=== PATIENT | female | born 1950 | race Caucasian/White ===

== ENCOUNTER 2018-10-04 13:38 | Outpatient (CLI) | payer MEDICARE ==
[2018-10-04 18:44] VITALS: BP 153/90
== END 2018-10-04 13:40 ==
LOC: RT 13:38
PROVIDERS: ATTEND Family Medicine
DX: R00.0 Tachycardia, unspecified (principal)

== ENCOUNTER 2018-10-04 14:06 | Emergency (ER) | payer MEDICARE ==
[2018-10-04 14:15] LABS: BASOPHILS % 0.6 (0.0-1.5); EOSINOPHILS % 1.4 % (0.0-6.8); MEAN CORPUSCULAR HEMOGLOBIN 29.5 pg (28.0-34.0); MONOCYTES % 5.6 % (0.0-11.0); NEUTROPHILS # 10.6 # k/uL (1.4-7.7)
[2018-10-04 14:29] LABS: eGFR (Non-African) > 60
[2018-10-04] MEDS ORDERED: DILTIAZEM HCL 25 MG/5 ML VIAL IVP ONE ×2 (14:42→16:08)
--- NOTE | 2018-10-04 15:38 | ED Physician Documentation ---
General Adult - HISTORIAN Historian: patient, other (Dr Delgado) - HPI Stated Complaint: Afib with RVR Chief Complaint: General Adult Further Comments: yes (68 year old female patient brought over from Dr Delgado's office with atrial fib. EKG in office shows Afib with rate of 141. Patient denies any chest pain at presents, denies any SOB, denies any N/V. Dr Delgado reports patient has had a 10 pound unexplained weight loss since . Patient is very biligerant and anxious with assessments and treatments.) - ROS CONST: other (fatigue and "not feeling well") EYES/ENT: none CVS/RESP: none GI/: other (weight loss, problems eating since before ). denies: vomiting, nausea, diarrhea MS/SKIN/LYMPH: none - PAST HX Past History: hypertension, other (depression and anxiety) Allergies/Adverse Reactions: Allergies Allergy/AdvReac Type Severity Reaction Status Date / Time No Known Drug Allergies Allergy Verified 10/04/18 15:02 - SOCIAL HX Smoking History: non-smoker - FAMILY HX Family History: No - VITAL SIGNS Vital Signs: Vital Signs Temp Pulse Resp BP Pulse Ox 97 F L 145 H 18 203/145 97 10/04/18 14:09 10/04/18 14:09 10/04/18 14:10/04/18 14:10/04/18 14:39 - REVIEWED ASSESSMENTS Nursing Assessment Reviewed: Yes Vitals Reviewed: Yes Progress - Progress Progress: Multiple attempts at redirection, explaining all treatments and procedures multiple times; patient extremely nervous, belligerent with staff. Will progress with CT to rule out CVA. Initially refused CT - multiple explanations with patient and . Call to Dr Delgado - updated on patient's status, agrees with treatment plan. Explained patient often does not agree with testing and procedures. Call to Dr Delgado; case discussed - recommended transfer for cardiology consult. Updated patient; extensive education and discussion - patient agreed to transfer; prefers [facility]. Dr Tripp, cardiology python web developer, in an emergency procedure. [id number] Tripp. Patient accepted for transfer. Cardizem drip increased to 7 mg/hr - heart rate 140s; Atrial fib. - EKG/XRAY/CT EKG: rhythm (from clinic - Afib, rate 141) - Additional EKG/XRAY/Consults EKG #2: rhythm (#2 - In ER, rate 125, Afib) ED Results Lab/Radiology - Lab Results Lab Results: Lab Results 10/04/18 10/04/18 10/04/18 14:09 14:09 14:00 WBC 13.20 K/ul H K/ul (4.00-12.00) RBC 4.38 M/ul M/ul (3.90-5.20) Hgb 12.9 g/dL g/dL (12.0-16.0) Hct 39.4 % % (34.5-46.5) MCV 90.0 fl fl (80.0-100.0) MCH 29.5 pg pg (28.0-34.0) MCHC 32.8 g/dL g/dL (30.0-36.0) RDW 16.8 % H % (11.3-14.3) Plt Count 231 K/mm3 K/mm3 (130-400) Neut % (Auto) 79.8 % H % (39.0-79.0) Lymph % (Auto) 12.6 % L % (16.0-50.0) [place] % (Auto) 5.6 % % (0.0-11.0) Eos % (Auto) 1.4 % % (0.0-6.8) Baso % (Auto) 0.6 (0.0-1.5) Neut # (Auto) 10.6 # k/uL H # k/uL (1.4-7.7) Lymph # (Auto) 1.7 # k/uL # k/uL (0.6-4.0) [place] # (Auto) 0.7 # k/uL # k/uL (0.0-0.9) Eos # (Auto) 0.2 # k/uL # k/uL (0.0-0.6) Baso # (Auto) 0.1 # k/uL # k/uL (0.0-0.5) Sodium 145 mmol/L mmol/L (136-145) Potassium 3.6 mmol/L mmol/L (3.5-5.1) Chloride 101 mmol/L mmol/L (98-107) Carbon Dioxide 28 mmol/L mmol/L (22-30) BUN 16 mg/dL mg/dL (7-17) Creatinine 1.07 mg/dL H mg/dL (0.52-1.04) Est GFR ( Amer) > 60 (60 - ) Est GFR (Non-Af Amer) > 60 (60 - ) Glucose 115 mg/dL H mg/dL (74-106) Calcium 9.9 mg/dL mg/dL (8.4-10.2) Total Bilirubin 1.3 mg/dL mg/dL (0.2-1.3) AST 30 U/L U/L (15-46) ALT 24 U/L U/L (13-69) Alkaline Phosphatase 62 U/L U/L (38-126) CK-MB (CK-2) 1.5 ng/mL ng/mL (0.0-5.6) Troponin I < 0.03 ng/mL L ng/mL (0.03-0.06) Total Protein 7.9 g/dL g/dL (6.3-8.2) Albumin 5.1 g/dL H g/dL (3.5-5.0) Lipase 83 U/L U/L (23-300) - Radiology Radiology Impressions: CT abdomen and pelvis with contrast History: Fatigue and weight loss Technique: Helically acquired images were obtained from the hemidiaphragms to the pelvic floor following IV contrast. Findings: There is mild, smooth pleural thickening posteromedially at the right lung base. Otherwise, visualized lung bases are clear. The spleen is mildly enlarged at 14 cm but no splenic lesions are noted. The liver, gallbladder, adrenal glands, pancreas and kidneys are unremarkable. There is heavy aortoiliac atherosclerosis without aneurysm. The kidneys are unremarkable. Small and large bowel loops are normal in caliber. The uterus, adnexa and decompressed bladder are unremarkable. There is no free fluid in the abdomen or pelvis. There is multilevel facet arthropathy. There is mild vacuum disc phenomenon at L1/2 and L2/3. Impression: Mild splenomegaly. Heavy aortoiliac atherosclerosis. Mild, smooth pleural thickening posteromedially at the right lung base. Degenerative findings of the lumbar spine as described. Electronically signed on Oct 04, 2018 3:52:26 PM CALENDAR CONTROL CLERK BLOOD BANK by: Jazmine Duran Head CT without contrast History: Fatigue. Unexplained weight loss. Altered mental status Technique: Axial images were obtained from the skull base to the vertex without IV contrast. Findings: There is age-related cortical volume loss. Brain parenchyma demonstrates normal attenuation. There is no positive mass effect or intra/extra-axial hemorrhage. The visualized paranasal sinuses and mastoid air cells are clear. Findings of mild hyperostosis frontalis interna are present. Impression: Age-related cortical volume loss. Otherwise, no intracranial abnormality. Electronically signed on Oct 04, 2018 3:44:22 PM CALENDAR CONTROL CLERK BLOOD BANK by: Jazmine Duran Portable chest History: Cough. Hypoxia. Portable chest dated October 04, 2018 is without prior radiographs comparison. The heart is mildly enlarged. There is mild aortic atherosclerosis. Pulmonary vascularity is normal. Lungs are clear. Impression: Mild cardiomegaly. No active disease. Electronically signed on Oct 04, 2018 3:45:16 PM CALENDAR CONTROL CLERK BLOOD BANK by: Jazmine Duran - Orders Orders: ED Orders Category Date Time Status Continuous EKG monitoring Q30M Care 10/04/18 14:09 Active Continuous Pulse Oximetry Q30M Care 10/04/18 14:[address] IV Lock 1T Care 10/04/18 14:09 Active CHEST 1VIEW [RAD] Stat Exams 10/04/18 14:[address] ABD & PELVIS W/ CON Stat Exams 10/04/[address] BRAIN W/O CONTRAST Stat Exams 10/04/18 Taken CBC/PLATELET/DIFF Routine Lab 10/04/18 14:09 Completed CKMB Stat Lab 10/04/18 14:00 Completed CMP Routine Lab 10/04/18 14:09 Completed LIPASE Routine Lab 10/04/18 14:09 Completed TROPONIN I (cTnI) Stat Lab 10/04/18 14:00 Completed UA W/MICRO IF INDICATED Stat Lab 10/04/18 14:09 Ordered Diltiazem HCl [Cardizem] Med 10/04/18 14:42 Discontinued 10 mg IVP STAT ONE Oxygen Daily Oxygen 10/04/18 14:15 Ordered EKG WITH COMPARISON Stat Ther 10/04/18 14:09 Completed General Adult Physical Exam - PHYSICAL EXAM GENERAL APPEARANCE: moderate distress (anxious) RESPIRATORY: no resp distress, chest non-tender, breath sounds normal, other (O2 applied per NC) CVS: heart sounds normal, equal pulses, no murmur, no gallop, PMI nml, no JVD, no friction rub, irregularly irregular rhy ABDOMEN: soft, no organomegaly, normal bowel sounds, no abdominal bruit, no distension SKIN: warm/dry, pallor EXTREMITIES: non-tender, normal range of motion, no evidence of injury, no edema, J, PAYROLL CONSULTANT NEURO: oriented X3, CN's nml as tested, motor nml, sensation nml, mood/affect nml Discharge Clincal Impression: Atrial fibrillation with RVR Referrals: Danial Delgado MD [Primary Care Provider] - 2 Days Condition: Stable Disposition: 09 ADMITTED INPATIENT Decision to Admit: NO Decision Time: 18:10
--- NOTE | 2018-10-04 15:48 | Diagnostic Imaging Report ---
MONTSERRAT CARR (JAVA ORACLE DEVELOPER) - ER [facility] [address] [facility].[address] [address] Report Submission Date: Oct 04, 2018 3:45:16 PM CLINICAL NURSING MANAGER Patient Study Name: HENNA BORJAS Date: Oct 04, 2018 2:21:36 PM CLINICAL NURSING MANAGER Modality Type: DX Gender: F Description: CHEST 1VIEW : 50 Institution: [facility] Physician: MONTSERRAT CARR (JAVA ORACLE DEVELOPER) - ER Portable chest History: Cough. Hypoxia. Portable chest dated October 04, 2018 is without prior radiographs comparison. The heart is mildly enlarged. There is mild aortic atherosclerosis. Pulmonary vascularity is normal. Lungs are clear. Impression: Mild cardiomegaly. No active disease. Electronically signed on Oct 04, 2018 3:45:16 PM CLINICAL NURSING MANAGER by: Jazmine LÓPEZ
--- NOTE | 2018-10-04 15:49 | Diagnostic Imaging Report ---
MONTSERRAT CARR (YOKE PRESSER) - ER [facility] [address] [facility].[address] [address] Report Submission Date: Oct 04, 2018 3:44:22 PM COACH WIRER Patient Study Name: HENNA BORJAS Date: Oct 04, 2018 3:06:36 PM COACH WIRER Modality Type: CT Gender: F Description: CT BRAIN W/O CONTRAST : 50 Institution: [facility] Physician: MONTSERRAT CARR (ADIEL) - ER Head CT without contrast History: Fatigue. Unexplained weight loss. Altered mental status Technique: Axial images were obtained from the skull base to the vertex without IV contrast. Findings: There is age-related cortical volume loss. Brain parenchyma demonstrates normal attenuation. There is no positive mass effect or intra/extra-axial hemorrhage. The visualized paranasal sinuses and mastoid air cells are clear. Findings of mild hyperostosis frontalis interna are present. Impression: Age-related cortical volume loss. Otherwise, no intracranial abnormality. Electronically signed on Oct 04, 2018 3:44:22 PM COACH WIRER by: Jazmine LÓPEZ
--- NOTE | 2018-10-04 16:00 | Diagnostic Imaging Report ---
MONTSERRAT CARR (ADIEL) - ER [facility] [address] [facility].[address] [address] Report Submission Date: Oct 04, 2018 3:52:26 PM BEATER LEAD Patient Study Name: HENNA BORJAS Date: Oct 04, 2018 3:12:44 PM BEATER LEAD Modality Type: CT Gender: F Description: CT ABD PELVIS W/ CON : 50 Institution: [facility] Physician: MONTSERRAT CARR (ADIEL) - ER CT abdomen and pelvis with contrast History: Fatigue and weight loss Technique: Helically acquired images were obtained from the hemidiaphragms to the pelvic floor following IV contrast. Findings: There is mild, smooth pleural thickening posteromedially at the right lung base. Otherwise, visualized lung bases are clear. The spleen is mildly enlarged at 14 cm but no splenic lesions are noted. The liver, gallbladder, adrenal glands, pancreas and kidneys are unremarkable. There is heavy aortoiliac atherosclerosis without aneurysm. The kidneys are unremarkable. Small and large bowel loops are normal in caliber. The uterus, adnexa and decompressed bladder are unremarkable. There is no free fluid in the abdomen or pelvis. There is multilevel facet arthropathy. There is mild vacuum disc phenomenon at L1/2 and L2/3. Impression: Mild splenomegaly. Heavy aortoiliac atherosclerosis. Mild, smooth pleural thickening posteromedially at the right lung base. Degenerative findings of the lumbar spine as described. Electronically signed on Oct 04, 2018 3:52:26 PM BEATER LEAD by: Jazmine LÓPEZ
[2018-10-04] MEDS ORDERED: DILTIAZEM HCL 125 MG in 0.9 % SODIUM CHLORIDE 100 ML IV STA (16:40)
[2018-10-04 16:45] LABS: APPEARANCE,URINE CLEAR (CLEAR); COLOR,URINE AMBER (YELLOW); OCCULT BLOOD,URINE TRACE (NEGATIVE); PH URINE 7.5 (5.0 - 8.0); UROBILINOGEN URINE 0.2 Eu (0.2-1.0)
[2018-10-04] MEDS ORDERED: POTASSIUM CHLORIDE 20 MEQ TABLET.ER PO ONE (16:45)
[2018-10-04 18:44] VITALS: BP 153/90
== END 2018-10-04 18:30 | disposition other institution (70) ==
LOC: ED 14:06
DX: I48.2 Chronic atrial fibrillation (principal); Z79.01 Long term (current) use of anticoagulants
CPT/HCPCS: 36415; 70450; 71045; 74177; 80053; 81002; 82553; 83690; 84484; 85025; 93005; 96374; 96376; 99285; A9270; J3490; Q9967; S1016